=== PATIENT | female | born 1985 | race Caucasian/White ===

== ENCOUNTER → 2019-07-17 | Outpatient (CLI) | payer BC ==
--- NOTE | 2019-07-17 10:49 | MM ---
Reason for exam: screening (asymptomatic). Baseline mammogram. History: Family history of breast cancer in maternal grandmother. Physical Findings: Nurse did not find any significant physical abnormalities on exam. MG 3D Screening Mammo W/Cad Bilateral CC, MLO, and XCCL view(s) were taken. The breast tissue is heterogeneously dense. This may lower the sensitivity of mammography. No suspicious abnormality. These results were verbally communicated with the patient and result sheet given to the patient on 07/17/19. ASSESSMENT: Negative, BI-RAD 1 RECOMMENDATION: Routine screening mammogram of both breasts at age 39. (or sooner if clinically indicated)
== END ==
LOC: RADMAMWWP 09:45
PROVIDERS: ATTEND Obstetrics & Gynecology
DX: Z12.31 Encounter for screening mammogram for malignant neoplasm of breast (principal)
CPT/HCPCS: 77063; 77067

== ENCOUNTER 2022-02-06 05:50 | Inpatient (IN) | payer BC ==
--- NOTE | 2022-02-05 07:35 | P.HPOB ---
History of Present Illness H&P Date: 02/05/22 Chief Complaint: Repeat section and tubal ligation. This patient is a pleasant 36-year-old 4 para 2 female estimated date of confinement 02/11/2022 estimated gestational age 39-2/7 weeks who presents to labor and delivery for elective repeat section and also requesting permanent sterilization. Patient's is been complicated by advanced maternal age. She did have a normal maternal T 21 however did decline maternal medicine evaluation. She has been on baby aspirin due to her age. Patient also was diagnosed with gestational diabetes and saw Dr. Burkett and did not require any medications. Patient has had 2 previous section desires repeat. She also requests permanent sterilization. She did have a previous ovary and tube removed we believe it's on the right side however I cannot document that. Patient understands a tubal ligation is permanent. Review of Systems Genitourinary: Reports Menstruation: Reports amenorrhea Past Medical History Additional Past Medical History / Comment(s): Gestational diabetes. 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 Past Anesthesia/Blood Transfusion Reactions: No Reported Reaction Past Psychological History: No Psychological Hx Reported Past Alcohol Use History: None Reported Additional Past Alcohol Use History / Comment(s): started smoking age 18- smokes 5 cig/day Past Drug Use History: None Reported - Past Family History Mother Family Medical History: No Reported History Medications and Allergies Home Medications Medication Instructions Recorded Confirmed Type Pnv,Calcium 72/Iron/Folic Acid 1 each PO DAILY 07/13/16 07/23/16 History [ Plus Tablet] Acetaminophen-Codeine 300-30mg 1 - 2 each PO Q4HR PRN #30 tab 07/25/16 Rx [Tylenol w/codeine #3] Ibuprofen [Motrin] 600 mg PO Q6HR PRN #40 tab 07/25/16 Rx Allergies Allergy/AdvReac Type Severity Reaction Status Date / Time sulfamethoxazole Allergy Rash/Hives Verified 07/23/16 06:12 [From Bactrim] trimethoprim [From Bactrim] Allergy Rash/Hives Verified 07/23/16 06:12 Exam - OBG Physical Exam Abdomen: bowel sounds normal, no diffuse tenderness, no bruit present, no guarding noted, no hepatomegaly, no splenomegaly, no mass Vulva: both: normal Vagina: normal moisture, no discharge Cervix: no lesion, no discharge Uterus: enlarged (Fundal height is 38 cm) Results blood work shows she is A positive, rubella immune, RPR nonreactive, HIV is nonreactive, hepatitis B was negative, Glucola was 162 with an abnormal 3 hour gtt., ultrasounds have shown normal growth and anatomy, B strep was negative. Assessment and Plan (1) 39 weeks gestation of Narrative/Plan: This is a pleasant 36-year-old 4 para 2 female 39-2/7 weeks gestation previous section 2 requests repeat. Patient's also requesting permanent sterilization. Plan is repeat low transverse section and also will proceed with bilateral or unilateral tubal ligation (based on surgical findings). Patient understands that a tubal ligation is considered permanent however there is a failure rate of less than 5 per thousand procedures done. She understands if she does become she has a 50% chance of a tubal or an ectopic . Patient understands surgery itself and apparently has risks including risks of infection, bleeding, possible injury bowel, bladder, vessels, and/or other organs. All the patient's questions are answered and a written consent is obtained. Status: Acute Code(s): Z3A.39 - 39 WEEKS GESTATION OF SNOMED Code(s): 69166975 (2) Gestational diabetes mellitus (GDM) Status: Acute Code(s): O24.419 - GESTATIONAL DIABETES MELLITUS IN , UNSP CONTROL SNOMED Code(s): 79289212 (3) Family planning Status: Acute Code(s): Z30.09 - ENCOUNTER FOR OT GENERAL CNSL AND ADVICE ON CONTRACEPTION SNOMED Code(s): 866990905 (4) Elderly multigravida Status: Acute Code(s): O09.529 - SUPERVISION OF ELDERLY MULTIGRAVIDA, UNSPECIFIED TRIMESTER SNOMED Code(s): 303827289 (5) Previous delivery affecting Status: Acute Code(s): O34.21 - MATERNAL CARE FOR SCAR FROM PREVIOUS * DO NOT USE * SNOMED Code(s): 320430222
[2022-02-06] MEDS ORDERED: LACTATED RINGERS 1,000 ML IV ONE (06:04)
[2022-02-06] MEDS ORDERED: LACTATED RINGERS 1,000 ML IV SCH ×2 (06:04→09:01)
[2022-02-06] MEDS ORDERED: CITRIC ACID-SODIUM CITRATE 15 ML CUP PO ONE (06:04)
[2022-02-06 06:22] LABS: Glucose,Whole Blood 97 mg/dL (75-99)
[2022-02-06 07:07] LABS: Basophils % (A) 0 %; Eosinophils # (A) 0.2 k/uL (0-0.7); Eosinophils % (A) 1 %; HCT 36.1 % (34.0-46.0); HGB 11.9 gm/dL (11.4-16.0); Lymphocytes # (A) 2.9 k/uL (1.0-4.8); Lymphocytes % (A) 24 %; MCH 30.5 pg (25.0-35.0); MCHC 33.1 g/dL (31.0-37.0); Mean Platelet Volume 8.3; Monocytes # (A) 0.6 k/uL (0-1.0); Monocytes % (A) 5 %; Neutrophils # (A) 8.5 k/uL (1.3-7.7); Neutrophils % (A) 68 %; Platelet Count 247 k/uL (150-450); RBC 3.92 m/uL (3.80-5.40); RDW 13.1 % (11.5-15.5); WBC 12.5 k/uL (3.8-10.6)
[2022-02-06] MEDS ORDERED: NALBUPHINE 10 MG/ML (1 ML AMP) ONE (07:47)
[2022-02-06] MEDS ORDERED: OXYTOCIN 30 UNITS/500 ML NS BAG IV ONE (07:47)
[2022-02-06] MEDS ORDERED: MORPHINE SULFATE (PF) 0.3 MG/0.3 ML SYR ONE (07:47)
[2022-02-06] MEDS ORDERED: ePHEDrine 50 MG/ML 1 ML VIAL ONE (07:47)
[2022-02-06] MEDS ORDERED: KETOROLAC 15 MG/ML 1 ML VIAL ONE (07:47)
[2022-02-06] MEDS ORDERED: ONDANSETRON 4 MG/2 ML VIAL ONE (07:47)
--- NOTE | 2022-02-06 08:34 | P.OP ---
Date of Procedure: 02/06/22 Preoperative Diagnosis: #1: 39-2/7 week . #2: Previous section 2 desires repeat. #3: Gestational diabetes. #4: Multi parity desires permanent sterilization Postoperative Diagnosis: Same Procedure(s) Performed: Repeat low transverse section and left partial salpingectomy (previous right salpingo-oophorectomy) Anesthesia: spinal Surgeon: Jaquan Steward Auto Body Worker #1: Marija Estrada Estimated Blood Loss (ml): 600 Pathology: other (Placenta and left fallopian tube segment) Condition: stable Disposition: floor Indications for Procedure: Please see dictated H&P for intimate details of this patient's admission. Brief summary this pleasant 36-year-old 4 para 2 female 39-2/7 weeks gestation admitted to labor and delivery for elective repeat section and also requesting permanent sterilization. Patient has had a previous right salpingo- oophorectomy. Patient understands this surgery and risks and risks of infection, bleeding, possible injury bowel, bladder, vessels, and other organs. She also understands a tubal ligation is considered permanent although there is a failure rate of less than 5 per thousand procedures done. All the patient's questions are answered written consent is obtained. Operative Findings: This patient had a previous right salpingo-oophorectomy. The left fallopian tube and ovary appear normal. Uterus appeared normal. Some vigorous viable male infant Apgars 9 and 9 delivery time was 0802 hrs. Description of Procedure: This patient has a Cottrell catheter placed to straight drain. She is subsequently taken to the operating room where she sat up and after the appropriate timeout spinal anesthetic is administered. An adequate level of anesthesia, she has abdominal prep and drape. Scalpels and taken the previous Pfannenstiel incision is incised. A second scalpel is taken down the fascia the fascia scored with a knife. Fascial incision extended bilaterally using the Garg scissors. Fascia is dissected sharply off the rectus muscles. Rectus muscles are the peritoneum identified and entered sharply. Peritoneal incision extended superior and inferior without difficulty. Bladder blade is then placed. Bladder peritoneum was then taken sharply off the lower uterine segment. Scalpels and taken low transverse uterine incision is then made. Using a hemostat intrauterine cavity bluntly and there is loss of clear fluid. Uterine incision extended bluntly and the infant's head is guided through the incision with fundal pressure. Mouth and nares are bulb suctioned. There is a nuchal cord which is loose and then reduced. With more fundal pressure delivered the rest of this infant's body. Is a vigorous viable male infant Apgars 9 and 9 delivery time was 0802 hrs. Infant has spontaneous respiration and good cry and grossly appears normal. After delivery of the infant the umbilical cord is doubly clamped and cut and is handed off to the nurses in attendance. Placenta is then manually extracted intact. The uterus is then externalized and uterine incision demarcated with Beltran clamps. Uterine incision closed using 0 Vicryl running locked fashion in 2 layers. Excellent hemostasis is noted. Bladder peritoneum was then reapproximated 3-0 Vicryl. Inspection shows absence of the right fallopian tube and ovary. I then turned my attention left fallopian tube and approximately 4 cm cornual insertion a small window is made to the mesial salpinx and using a 2-0 silk I doubly ligate a 2 cm segment of the tube. Cizek excised and handed off to pathology and the tubal ends are cauterized. Good hemostasis is noted. This done excess fluid is removed from the abdomen and pelvis. Uterus placed back in the abdomen. Final inspection of the tubal ends and uterine incision shows be hemostatic. The parietal peritoneum was then closed using 0 Vicryl running fashion. The rectus muscles reapproximated using 0 Vicryl interrupted fashion. Fascial incision closed using running 0 PDS. Fascial incision is intact and hemostatic. Subcutaneous tissues and closed using a 3-0 Vicryl. Skin is and closed using fox. All counts are correct 3. No complications. and mother are taken to the birthing suite in satisfactory condition.
[2022-02-06] MEDS ORDERED: diphenhydrAMINE 50 MG/ML 1 ML VIAL IVP PRN ×2 (08:43→09:01)
[2022-02-06] MEDS ORDERED: MORPHINE SULFATE 2 MG/ML SYRINGE IVP PRN (08:43)
[2022-02-06] MEDS ORDERED: ONDANSETRON 4 MG/2 ML VIAL IVP PRN ×2 (08:43→09:01)
[2022-02-06] MEDS ORDERED: NALOXONE 0.4 MG/ML 1 ML VIAL IV PRN ×2 (08:43→09:01)
[2022-02-06] MEDS ORDERED: METOCLOPRAMIDE 5 MG/ML 2 ML VIAL IVP PRN (09:01)
[2022-02-06] MEDS ORDERED: ZOLPIDEM 5 MG TAB PO PRN (09:01)
[2022-02-06] MEDS ORDERED: LANOLIN CREAM 5 GM TUBE TOPICAL PRN (09:01)
[2022-02-06] MEDS ORDERED: diphenhydrAMINE 25 MG CAP PO PRN (09:01)
[2022-02-06] MEDS ORDERED: OXYTOCIN 30 UNITS/500 ML NS 30 UNIT in SALINE 1 500ML.BAG IV SCH (09:01)
[2022-02-06] MEDS ORDERED: SIMETHICONE 80 MG CHEWABLE PO PRN (09:01)
[2022-02-06] MEDS: SENNOSIDES-DOCUSATE SODIUM 1 EACH TAB PO SCH ×2 (09:38→19:33)
[2022-02-06] MEDS ORDERED: KETOROLAC 30 MG/ML 1 ML VIAL IVP SCH (18:00)
[2022-02-06] MEDS: KETOROLAC 15 MG/ML 1 ML VIAL IVP SCH (21:31)
[2022-02-07] MEDS: KETOROLAC 15 MG/ML 1 ML VIAL IVP SCH ×3 (05:01→15:19)
--- NOTE | 2022-02-07 06:39 | P.PNOBGPC ---
Subjective - Subjective Patient reports: Reports appetite normal, Reports voiding normally, Reports pain well controlled, Reports ambulating normally : doing well Objective - Vital Signs Latest vital signs: Vital Signs Temp Pulse Resp BP Pulse Ox 02/07/22 05:00 16 100 02/07/22 04:00 97.9 F 72 16 99/63 02/07/22 03:00 16 02/07/22 01:00 16 98 02/07/22 00:00 97.8 F 80 16 100/58 02/06/22 23:00 16 02/06/22 21:00 16 98 02/06/22 20:00 97.7 F 86 16 105/62 02/06/22 19:00 16 02/06/22 16:46 16 96 02/06/22 15:35 98.1 F 80 16 110/68 96 02/06/22 12:52 89 15 97 02/06/22 12:00 98.4 F 87 16 111/68 02/06/22 11:19 89 15 97 02/06/22 10:30 98.0 F 64 17 110/63 97 02/06/22 10:00 66 16 108/70 02/06/22 09:30 85 16 115/69 95 02/06/22 09:15 82 16 114/62 97 02/06/22 09:00 88 16 119/66 95 02/06/22 08:45 93 17 124/59 95 02/06/22 08:02 97.0 F L 92 16 118/57 94 L Intake and Output 02/06/22 02/06/22 02/07/22 14:59 22:59 06:59 Output Total 1649 800 400 Balance -1649 -800 -400 Output: Urine 600 400 Uretheral (Cottrell) 600 Emesis 300 200 Estimated Blood Loss 637 Output, Quantitative 712 Blood Loss Other: # Voids 2 - Exam Lungs: bilateral: normal Chest: Normal S1, Normal S2 Extremities: Present: normal Abdomen: Present: normal appearance, soft. Absent: distention, tenderness Incision: Present: normal, dry, intact Uterus: Present: normal, firm - Labs Labs: Abnormal Lab Results - Last 24 Hours (Table) 02/06/22 Range/Units 06:50 WBC 12.5 H (3.8-10.6) k/uL Neutrophils # 8.5 H (1.3-7.7) k/uL Assessment and Plan Assessment: Postoperative day #1. Patient is resting without new complaints. Vital signs are stable she's afebrile. Uterus is firm nontender she is having normal lochia. Incision is intact and dry. CBC is pending at time of this dictation. My impression this is a normal course. Plan is to check a CBC, encourage ambulation, and resume normal postoperative care. (1) 39 weeks gestation of Current Visit: No Status: Acute Code(s): Z3A.39 - 39 WEEKS GESTATION OF SNOMED Code(s): 70224384 (2) Gestational diabetes mellitus (GDM) Current Visit: No Status: Acute Code(s): O24.419 - GESTATIONAL DIABETES MELLITUS IN , UNSP CONTROL SNOMED Code(s): 83245156 (3) Family planning Current Visit: No Status: Acute Code(s): Z30.09 - ENCOUNTER FOR OTH GENERAL CNSL AND ADVICE ON CONTRACEPTION SNOMED Code(s): 185183374 (4) Elderly multigravida Current Visit: No Status: Acute Code(s): O09.529 - SUPERVISION OF ELDERLY MULTIGRAVIDA, UNSPECIFIED TRIMESTER SNOMED Code(s): 170128813 (5) Previous delivery affecting Current Visit: No Status: Acute Code(s): O34.21 - MATERNAL CARE FOR SCAR FROM PREVIOUS * DO NOT USE * SNOMED Code(s): 896518700
[2022-02-07 07:14] LABS: Basophils # (A) 0.1 k/uL (0-0.2); Basophils % (A) 0 %; Eosinophils # (A) 0.1 k/uL (0-0.7); Eosinophils % (A) 1 %; HCT 38.1 % (34.0-46.0); HGB 12.9 gm/dL (11.4-16.0); Lymphocytes % (A) 19 %; MCH 31.4 pg (25.0-35.0); MCHC 33.9 g/dL (31.0-37.0); MCV 92.7 fL (80.0-100.0); Mean Platelet Volume 7.9; Monocytes # (A) 0.7 k/uL (0-1.0); Monocytes % (A) 5 %; Neutrophils # (A) 11.5 k/uL (1.3-7.7); Neutrophils % (A) 73 %; Platelet Count 255 k/uL (150-450); RBC 4.11 m/uL (3.80-5.40); RDW 13.6 % (11.5-15.5); WBC 15.9 k/uL (3.8-10.6)
--- NOTE | 2022-02-07 07:33 | P.PN ---
Progress Note - Text Progress Note Date: 02/07/22 (650) Anesthesia Postop day 1 Subjective: Status Post section with Duramorph. Patient seen and examined. Doing well without complaint. VAS 0. Complaining of mild pruritus. Had slight nausea and vomiting yesterday now resolved.. Afebrile. Gross lower extremity strength intact. . Without apparent anesthetic complications. Objective: Vital signs reviewed Heart: Regular Rate Lungs: Good chest excursion Abdomen: Appears nondistended Assessment: Status post with Duramorph postop day 1 Plan: Continue current care with your medical management.
[2022-02-07] MEDS: ACETAMINOPHEN TAB 500 MG TAB PO PRN ×3 (08:29→21:54)
[2022-02-07] MEDS: SENNOSIDES-DOCUSATE SODIUM 1 EACH TAB PO SCH ×2 (08:29→19:55)
[2022-02-07] MEDS: IBUPROFEN 600 MG TAB PO PRN (16:55)
[2022-02-07 20:24] VITALS: RESP 16
[2022-02-08] MEDS: IBUPROFEN 600 MG TAB PO PRN ×2 (00:11→07:33)
--- NOTE | 2022-02-08 07:00 | P.PNOBGPC ---
Subjective - Subjective Patient reports: Reports appetite normal, Reports voiding normally, Reports pain well controlled, Reports ambulating normally : doing well Objective - Vital Signs Latest vital signs: Vital Signs Temp Pulse Resp BP Pulse Ox 02/08/22 00:00 97.8 F 62 16 120/78 02/07/22 20:25 100 02/07/22 20:00 97.7 F 16 108/62 02/07/22 15:13 98.0 F 83 15 106/63 98 02/07/22 11:00 15 98 02/07/22 09:00 16 98 02/07/22 08:00 98.1 F 72 16 112/72 98 02/07/22 07:00 98.1 F 72 16 112/72 98 - Exam Lungs: bilateral: normal Chest: Normal S1, Normal S2 Extremities: Present: normal Abdomen: Present: normal appearance, soft. Absent: distention, tenderness Incision: Present: normal, dry, intact Uterus: Present: normal, firm - Labs Labs: Abnormal Lab Results - Last 24 Hours (Table) 02/07/22 Range/Units 06:49 WBC 15.9 H (3.8-10.6) k/uL Neutrophils # 11.5 H (1.3-7.7) k/uL Assessment and Plan Assessment: Postoperative day #2. Patient is resting without complaints and wishes to go home. Vital signs are stable she's afebrile. Uterus is firm nontender and her incision is intact and dry. My impression is that this is a normal postoperative course. Plan is to continue routine postoperative care and discharge home later today. (1) 39 weeks gestation of Current Visit: No Status: Acute Code(s): Z3A.39 - 39 WEEKS GESTATION OF SNOMED Code(s): 20749336 (2) Gestational diabetes mellitus (GDM) Current Visit: No Status: Acute Code(s): O24.419 - GESTATIONAL DIABETES MELLITUS IN , UNSP CONTROL SNOMED Code(s): 73287658 (3) Family planning Current Visit: No Status: Acute Code(s): Z30.09 - ENCOUNTER FOR OTH GENERAL CNSL AND ADVICE ON CONTRACEPTION SNOMED Code(s): 970837355 (4) Elderly multigravida Current Visit: No Status: Acute Code(s): O09.529 - SUPERVISION OF ELDERLY MULTIGRAVIDA, UNSPECIFIED TRIMESTER SNOMED Code(s): 970981633 (5) Previous delivery affecting Current Visit: No Status: Acute Code(s): O34.21 - MATERNAL CARE FOR SCAR FROM PREVIOUS * DO NOT USE * SNOMED Code(s): 129599226
--- NOTE | 2022-02-08 07:05 | P.DS ---
Providers Date of admission: 02/06/22 05:50 Expected date of discharge: 02/08/22 Attending physician: Jaquan Steward Primary care physician: Stated None - Discharge Diagnosis(es) (1) 39 weeks gestation of Current Visit: No Status: Acute (2) Gestational diabetes mellitus (GDM) Current Visit: No Status: Acute (3) Family planning Current Visit: No Status: Acute (4) Elderly multigravida Current Visit: No Status: Acute (5) Previous delivery affecting Current Visit: No Status: Acute Hospital Course: Please see dictated H&P for intimate details of this patient's admission. In brief summary this is a pleasant 36-year-old multigravida patient admitted to labor and delivery for elective repeat section and tubal ligation. Patient is admitted undergoes repeat low transverse section and left partial salpingectomy. Please see dictated H&P and operative note. Postoperatively patient did well and on postoperative 2 spell to be stable for discharge home follow up with me in 1 week. Procedures: Repeat low transverse section and left partial salpingectomy Patient Condition at Discharge: Good Plan - Discharge Summary New Discharge Prescriptions: New Ibuprofen [Motrin] 600 mg PO Q6H PRN #30 tab PRN Reason: Pain oxyCODONE HCL [OxyIR] 5 mg PO Q4HR PRN #18 tab PRN Reason: Pain No Action Pnv,Calcium 72/Iron/Folic Acid [ Plus Tablet] 1 each PO DAILY Aspirin [Adult Low Dose Aspirin EC] 81 mg PO DAILY Discharge Medication List Pnv,Calcium 72/Iron/Folic Acid [ Plus Tablet] 1 each PO DAILY 07/13/16 [History] Aspirin [Adult Low Dose Aspirin EC] 81 mg PO DAILY 02/06/22 [History] Ibuprofen [Motrin] 600 mg PO Q6H PRN #30 tab 02/08/22 [Rx] oxyCODONE HCL [OxyIR] 5 mg PO Q4HR PRN #18 tab 02/08/22 [Rx] Follow up Appointment(s)/Referral(s): Jaquan Steward MD [STAFF PHYSICIAN] - 03/20/22 11:00 am (Please see me for a postop check on 02/14/22@1:30pm) Patient Instructions/Handouts: (DC) Activity/Diet/Wound Care/Special Instructions: No heavy lifting or strenuous activity for 6 weeks. No intercourse or anything per vagina for 6 weeks. Please call if any fever, chills, excessive vaginal bleeding, and/or abdominal pain. Discharge Disposition: HOME SELF-CARE
[2022-02-08] MEDS: SENNOSIDES-DOCUSATE SODIUM 1 EACH TAB PO SCH (07:33)
[2022-02-08 08:06] VITALS: BP 124/68; PULSE 71; TEMP 97.7
== END 2022-02-08 10:40 | disposition home or self-care (01) | DRG 785 ==
LOC: 4FBP 05:50
PROVIDERS: ADMIT Obstetrics & Gynecology; ATTEND Obstetrics & Gynecology
PROC: 0UB70ZZ Excision of Bilateral Fallopian Tubes, Open Approach (ICD-10-PCS; 2022-02-06)
PROC: 3E033VJ Introduction of Other Hormone into Peripheral Vein, Percutaneous Approach (ICD-10-PCS; 2022-02-06)
PROC: 10D00Z1 Extraction of Products of Conception, Low, Open Approach (ICD-10-PCS; principal; 2022-02-06 08:00)
DX: O34.211 Maternal care for low transverse scar from previous cesarean delivery (principal); O69.81X0 Labor and delivery complicated by cord around neck, without compression, not applicable or unspecified; O24.429 Gestational diabetes mellitus in childbirth, unspecified control; L29.9 Pruritus, unspecified; O99.73 Diseases of the skin and subcutaneous tissue complicating the puerperium; Z30.2 Encounter for sterilization; Z37.0 Single live birth; Z3A.39 39 weeks gestation of pregnancy; Z87.891 Personal history of nicotine dependence; Z90.721 Acquired absence of ovaries, unilateral; Z88.1 Allergy status to other antibiotic agents; Z88.2 Allergy status to sulfonamides
CPT/HCPCS: 83036; 85025; 86850; 86900; 86901; 88302; 88307

== ENCOUNTER → 2024-07-08 | Outpatient (CLI) | payer BC ==
--- NOTE | 2024-07-30 14:19 | MM ---
Reason for Exam: Screening (asymptomatic). Last mammogram was performed 5 year(s) and 0 month(s) ago. Patient History: Menarche at age 11. First Full-Term at age 27. Left ovary removed at age 18. Maternal grandmother had breast cancer. Last menstrual period: 06/23/2024 Risk Values: Tamar 5 year model risk: 0.6%. NCI Lifetime model risk: 11.1%. Prior Study Comparison: 07/17/2019 Bilateral Screening Mammogram, [facility]. Tissue Density: There are scattered areas of fibroglandular density. Findings: Analyzed By CAD. Right breast: There is no suspicious group of microcalcifications or new suspicious mass. Left breast: There is no suspicious group of microcalcifications or new suspicious mass. Overall Assessment: Negative, BI-RAD 1 Management: Screening Mammogram of both breasts in [address] [facility] will attempt to contact patient to return for supplemental views and ultrasound if indicated. Patient should continue monthly self-breast exams. A clinical breast exam by your physician is recommended on an annual basis. This exam should not preclude additional follow-up of suspicious palpable abnormalities. Note on Tamar scores and lifetime risk: 1. A Tamar score greater than 3% is considered moderate risk. If this is the case, consider specialist referral to assess eligibility for a risk reducing agent. 2. If overall lifetime risk for the development of breast cancer is 20% or higher, the patient may qualify for future screening with alternating mammogram and breast MRI. Electronically signed and approved by: Cy Jules DO
== END | disposition home or self-care (01) ==
LOC: RADMAMWWP 12:00
PROVIDERS: ATTEND Internal Medicine
DX: Z12.31 Encounter for screening mammogram for malignant neoplasm of breast
CPT/HCPCS: 77063; 77067